=== PATIENT | male | born 1950 | race Caucasian/White ===

== ENCOUNTER 2019-02-19 10:23 | Emergency (ER) | payer MEDICARE ==
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
[2019-02-19] MEDS ORDERED: HYDROcodone/ACETAMIN 5-325 MG* 1 TAB PO ONE (10:47)
[2019-02-19 10:58] LABS: ABS Lymphocytes 0.9 10^3/ul (1.0-4.8); ABS Monocytes 0.5 10^3/ul (0-0.8); ABS Neutrophils 10.3 10^3/ul (1.5-7.7); Eosinophil % 0.4 %; Hematocrit 39 % (42-52); Hemoglobin 13.5 g/dL (14.0-18.0); Lymphocyte % 7.3 %; Mean Corpuscular HGB Conc 35 g/dL (31-36); Mean Corpuscular Hemoglobin 31 pg (27-31); Mean Corpuscular Volume 89 fL (80-94); Platelet Count 329 10^3/uL (150-450); Red Cell Distribution Width 13 % (10-15); White Blood Count 11.7 10^3/uL (3.5-10.8)
[2019-02-19 11:22] LABS: Alcohol < 10 mg/dL (<10)
[2019-02-19 11:26] LABS: ALT 13 U/L (7-52); AST 18 U/L (13-39); Albumin 4.6 g/dL (3.2-5.2); Albumin/Globulin Ratio 1.5 (1-3); Alkaline Phosphatase 78 U/L (34-104); Anion Gap 11 mmol/L (2-11); BUN/Creatinine Ratio 23.9 (8-20); Blood Urea Nitrogen 27 mg/dL (6-24); CO2 Carbon Dioxide 22 mmol/L (22-32); Calcium 9.5 mg/dL (8.6-10.3); Chloride 104 mmol/L (101-111); EGFR African American 78.3 (>60); EGFR Non-African American 64.7 (>60); Globulin 3.1 g/dL (2-4); Glucose 128 mg/dL (70-100); Potassium 3.6 mmol/L (3.5-5.0); Sodium 137 mmol/L (135-145); Total Protein 7.7 g/dL (6.4-8.9)
[2019-02-19 12:36] VITALS: BP 151/84
== END 2019-02-19 12:54 | disposition home or self-care (01) ==
LOC: ED 10:23
DX: S22.42XA Multiple fractures of ribs, left side, initial encounter for closed fracture (principal); V18.4XXA Pedal cycle driver injured in noncollision transport accident in traffic accident, initial encounter; Y93.55 Activity, bike riding; Y92.481 Parking lot as the place of occurrence of the external cause
CPT/HCPCS: 36415; 70450; 80053; 80320; 83605; 84484; 85025; 93005; 99283; G0480

== ENCOUNTER 2019-04-23 08:39 | Emergency (ER) | payer MEDICARE, MEDICAID ==
--- NOTE | 2019-04-23 09:12 | ED ---
Upper Extremity Pain - HPI Summary HPI Summary: Patient is a 68 -year-old male who presents emergency department for pain and swelling to right hand. Patient states about a week ago he jammed his right middle finger is a and had pain and swelling for a few days. Patient states his symptoms resolved until yesterday when he was walking his dog and feels the leash was pulling hard on his right hand. Patient states today hand was very swollen and painful. Denies associated symptoms of fever, chills, redness, wounds. No history of diabetes. Symptoms are mild in severity. Movement makes symptoms worse. Nothing makes symptoms better. - History of Current Complaint Chief Complaint: EDExtremityUpper Stated Complaint: HAND INJURY Time Seen by Provider: 04/23/19 08:57 Hx Obtained From: Patient - Allergies/Home Medications Allergies/Adverse Reactions: Allergies Allergy/AdvReac Type Severity Reaction Status Date / Time No Known Allergies Allergy Verified 04/23/19 08:40 PMH/Surg Hx/FS Hx/Imm Hx Previously Healthy: Yes Endocrine/Hematology History: Denies: Hx Diabetes, Hx Systemic Lupus Erythematosus Cardiovascular History: Denies: Hx Hypertension Sensory History: Denies: Hx Deafness Infectious Disease History: No Infectious Disease History: Denies: Traveled Outside the [place] in Last 30 Days - Family History Known Family History: Positive: Non-Contributory Negative: Cardiac Disease, Hypertension, Diabetes - Social History Occupation: Retired Lives: With Family Alcohol Use: None Hx Substance Use: No Substance Use Type: Reports: None Hx Tobacco Use: No Smoking Status (MU): Never Smoked Tobacco Review of Systems Constitutional: Negative Negative: Fever, Chills Positive: Other - Right hand and swelling. Skin: Negative Positive: Paresthesia All Other Systems Reviewed And Are Negative: Yes Physical Exam Triage Information Reviewed: Yes Vital Signs On Initial Exam: Initial Vitals Temp Pulse Resp BP Pulse Ox 97.4 F 85 16 162/67 98 04/23/19 08:41 04/23/19 08:41 04/23/19 08:41 04/23/19 08:41 04/23/19 08:41 Vital Signs Reviewed: Yes Appearance: Positive: Well-Appearing - Pt. sittin terra bed in NAD. Skin: Positive: Warm, Dry Head/Face: Positive: Normal Head/Face Inspection Eyes: Positive: Normal, EOMI Neck: Positive: Supple Musculoskeletal: Positive: Other - Diffuse edema and pain to the dorsum of right hand. Pain wih movement of digits. No overlying erythema or wounds. Neurological: Positive: Normal, CN Intact II-III Psychiatric: Positive: Affect/Mood Appropriate Diagnostics - Vital Signs Vital Signs Temp Pulse Resp BP Pulse Ox 04/23/19 08:41 97.4 F 85 16 162/67 98 - Laboratory Result Diagrams: 04/23/19 09:33 04/23/19 09:33 Lab Statement: Any lab studies that have been ordered have been reviewed, and results considered in the medical decision making process. Course/Dx - Course Course Of Treatment: Pt. with hand swelling and pain. Labs were obtained to r/o infectious etiology given extend of edema. CBC unremarkable. CRP minimally elevated. Acewrap placed. Xray shows edema without fx, reading per radiology. Advised to elevate and ice intermittently. Motrin as directed x 1 week. To f.u with PCP within one week and return to ER if sxs change or worsen. Pt. understands and agrees with plan. - Diagnoses Differential Diagnosis/HQI/PQRI: Positive: Contusion, Fracture (Closed), Strain , Sprain Provider Diagnoses: Hand swelling Discharge ED - Sign-Out/Discharge Documenting (check all that apply): Patient Departure Patient Received Moderate/Deep Sedation with Procedure: No - Discharge Plan Condition: Good Disposition: HOME Patient Education Materials: Hand Sprain (ED) Referrals: Karen Ríos MD [Primary Care Provider] - Additional Instructions: Follow up with PCP within one week if symptoms continue Ice and elevate intermittently Wear fiordaliza wrap Ibuprofen x one week as directed Return to ER for increased pain, swelling, redness, fever, or if concerned - Billing Disposition and Condition Condition: GOOD Disposition: Home
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
[2019-04-23 09:49] LABS: ABS Basophils 0.1 10^3/ul (0-0.2); ABS Eosinophils 0.4 10^3/ul (0-0.6); ABS Lymphocytes 1.5 10^3/ul (1.0-4.8); ABS Monocytes 0.5 10^3/ul (0-0.8); ABS Neutrophils 5.3 10^3/ul (1.5-7.7); Eosinophil % 5.7 %; Hematocrit 39 % (42-52); Hemoglobin 13.5 g/dL (14.0-18.0); Lymphocyte % 18.7 %; Mean Corpuscular HGB Conc 34 g/dL (31-36); Mean Corpuscular Hemoglobin 30 pg (27-31); Mean Corpuscular Volume 88 fL (80-94); Mean Platelet Volume 8.8 fL (7.4-10.4); Nucleated Red Blood Cells % 0.2; Platelet Count 243 10^3/uL (150-450); Red Blood Count 4.45 10^6 /uL (4.18-5.48); Red Cell Distribution Width 13 % (10-15); White Blood Count 7.7 10^3/uL (3.5-10.8)
[2019-04-23 10:39] LABS: Albumin 4.4 g/dL (3.2-5.2); Albumin/Globulin Ratio 1.3 (1-3); BUN/Creatinine Ratio 20.4 (8-20); C Reactive Protein 15.13 mg/L (<8.01); Calcium 8.7 mg/dL (8.6-10.3); EGFR African American 92.3 (>60); EGFR Non-African American 76.3 (>60); Globulin 3.3 g/dL (2-4); Potassium 4.1 mmol/L (3.5-5.0); Total Bilirubin 0.4 mg/dL (0.2-1.0); Total Protein 7.7 g/dL (6.4-8.9)
[2019-04-23 10:55] VITALS: BP 149/102
== END 2019-04-23 10:55 | disposition home or self-care (01) ==
LOC: ED 08:39
DX: M79.89 Other specified soft tissue disorders (principal); Z79.899 Other long term (current) drug therapy
CPT/HCPCS: 36415; 80053; 85025; 86140; 99282